=== PATIENT | female | born 1960 | race Hispanic/Latino ===

== ENCOUNTER 2016-11-12 12:49 | Emergency (ER) | payer MEDICARE ==
[2016-11-12 12:50] VITALS: BMI 19.2
[2016-11-12 12:59] VITALS: BP 133/86; PULSE 85; RESP 20; TEMP 99; O2SAT 99
--- NOTE | 2016-11-12 13:26 | ED PDOC ---
HPI: General Adult Time Seen by Provider: 11/12/16 13:06 Chief Complaint (Nursing): Cough, Cold, Congestion Chief Complaint (Provider): Cough History Per: Patient History/Exam Limitations: no limitations Onset/Duration Of Symptoms: Days (1 month) Current Symptoms Are (Timing): Still Present Additional Complaint(s): Pt. with cough, nasal congestion, runny nose, white phlegm. Dyspnea. Tried zpack at home with no relief. Seen by Dr. Lua. Told to come to the ER. No chest pain. No leg pain. No dizziness, weakness, neck pain, headaches. Past Medical History Reviewed: Nursing Documentation, Vital Signs Vital Signs: Last Vital Signs Temp 99 F 11/12/16 12:55 Pulse 85 11/12/16 12:55 Resp 20 11/12/16 12:55 BP 133/86 11/12/16 12:55 Pulse Ox 99 11/12/16 14:24 - Medical History PMH: Anxiety, Asthma, COPD, Hyperthyroidism (Graves, thyroid procedure with radiation), Pneumonia Denies: Diabetes, Hepatitis, HIV, HTN, Seizures, Sexually Transmitted Disease Other PMH: Pneumothorax - Surgical History Surgical History: Denies: CABG - Family History Family History: States: Unknown Family Hx - Living Arrangements Living Arrangements: With Family - Social History Current smoker - smoking cessation education provided: No Alcohol: None Drugs: Denies - Immunization History Hx Tetanus Toxoid Vaccination: No Hx Influenza Vaccination: No Hx Pneumococcal Vaccination: No - Home Medications Home Medications: Ambulatory Orders Medication Instructions Recorded Alprazolam [Xanax] 1 mg PO TID PRN 10/01/14 Fentanyl [Duragesic] 1 patch TD Q2D 10/01/14 Levothyroxine [Synthroid] 0.112 mg PO DAILY 10/01/14 Montelukast [Singulair] 10 mg PO DAILY 10/01/14 Oxycodone HCl/Acetaminophen 1 tab PO TID PRN 12/29/14 [Percocet 325 mg-7.5 mg] clonazePAM [Klonopin] 1 mg PO BID 12/29/14 Albuterol HFA [Ventolin HFA 90 0.09 mg IH TID PRN 7 Days 11/12/16 mcg/actuation (8 g)] Levofloxacin [Levaquin] 750 mg PO DAILY 5 Days 06/22/17 predniSONE [predniSONE Tab] 20 mg PO BID 5 Days 11/12/16 - Allergies Allergies/Adverse Reactions: Allergies Allergy/AdvReac Type Severity Reaction Status Date / Time Penicillins Allergy RASH Verified 11/12/16 12:52 Review of Systems ROS Statement: Except As Marked, All Systems Reviewed And Found Negative ENT: Positive for: Nose Pain, Nose Discharge, Nose Congestion Respiratory: Positive for: Cough, Shortness of Breath, Sputum Physical Exam - Reviewed Nursing Documentation Reviewed: Yes Vital Signs Reviewed: Yes - Physical Exam Appears: Positive for: Non-toxic, No Acute Distress Head Exam: Positive for: ATRAUMATIC, NORMAL INSPECTION, NORMOCEPHALIC Skin: Positive for: Normal Color, Warm, DRY Eye Exam: Positive for: EOMI, Normal appearance, PERRL ENT: Positive for: Nasal Congestion Neck: Positive for: Normal, Painless ROM, Supple Cardiovascular/Chest: Positive for: Regular Rate, Rhythm Respiratory: Positive for: Decreased Breath Sounds. Negative for: Accessory Muscle Use Gastrointestinal/Abdominal: Positive for: Normal Exam, Bowel Sounds, Soft. Negative for: Tenderness Back: Positive for: Normal Inspection. Negative for: L CVA Tenderness, R CVA Tenderness Extremity: Positive for: Normal ROM. Negative for: Tenderness, Pedal Edema Neurologic/Psych: Positive for: Alert, Oriented - Laboratory Results Result Diagrams: 11/12/16 13:55 11/12/16 13:55 Interpretation Of Abn Labs: no acute - ECG ECG: Positive for: Interpreted By Me, Viewed By Me ECG Rhythm: Positive for: Normal QRS, Normal ST Segment Interpretation Of Abn EKG: same as old O2 Sat by Pulse Oximetry: 99 Pulse Ox Interpretation: Normal - Radiology X-Ray: Interpreted by Me, Viewed By Me (same as old) X-Ray Interpretation: No Acute Disease - Progress ED Course And Treament: 1425: Stable. AAOx3. Pain free. Tolerated PO. No dyspnea. Spoke with Dr. Lua. Wants pt. to be dc on levaquin, prednisone, ventolin. Disposition - Clinical Impression Clinical Impression: Cough, Asthma - Patient ED Disposition Is Patient to be Admitted: No Counseled Patient/Family Regarding: Studies Performed, Diagnosis, Need For Followup, Rx Given - Disposition Referrals: [facility] [Outside] - 11/13/16 Disposition: Routine/Home Disposition Time: 14:27 Condition: STABLE Additional Instructions: Return if not better in 3 days. Prescriptions: Albuterol HFA [Ventolin HFA 90 mcg/actuation (8 g)] 0.09 mg IH TID PRN 7 Days PRN Reason: Wheezing Levofloxacin [Levaquin] 750 mg PO DAILY 5 Days predniSONE [predniSONE Tab] 20 mg PO BID 5 Days Instructions: Asthma (ED), Acute Cough (ED)
[2016-11-12] MEDS ORDERED: Albuterol-Ipratrop 3 mg / 0.5 (3 ml) UD IH STA (13:29)
[2016-11-12] MEDS ORDERED: Sodium Chloride 0.9% 500 ML IV STA (13:29)
[2016-11-12 14:04] LABS: BASO % 0.5 % (0.0-2.0); EOS # 0.1 K/uL (0.0-0.7); EOS % 0.9 % (0.0-4.0); HEMATOCRIT 39.4 % (34.0-47.0); LYMPH # 2.1 K/uL (1.0-4.3); LYMPH % 30.4 % (20.0-40.0); MEAN CELL VOLUME 91.6 fl (81.0-99.0); MEAN CORPUSCULAR HEMOGLOBIN 30.1 pg (27.0-31.0); MEAN CORPUSCULAR HGB CONC 32.8 g/dL (33.0-37.0); MEAN PLATELET VOLUME 8.8 fl (7.2-11.7); MONO # 0.5 K/uL (0.0-0.8); MONO % 7.1 % (0.0-10.0); NEUT # 4.1 K/uL (1.8-7.0); NEUT % 61.1 % (50.0-75.0); NRBC % 0.1 % (0.0-0.0); RED CELL DISTRIBUTION WIDTH 13.2 % (11.5-14.5); WHITE BLOOD COUNT 6.8 K/uL (4.8-10.8)
[2016-11-12 14:05] LABS: VENOUS BLOOD GAS BASE EXCESS 4.9 mmol/L (0.0-2.0); VENOUS BLOOD GAS PCO2 62 mmHg (40-60); VENOUS BLOOD PH 7.33 (7.32-7.43)
[2016-11-12 14:11] LABS: ALB/GLOB RATIO 1.8 (1.0-2.1); ALKALINE PHOSPHATASE 55 U/L (38-126); ALT/SGPT 39 U/L (9-52); AST/SGOT 29 U/L (14-36); BILIRUBIN,TOTAL 0.7 mg/dl (0.2-1.3); BLOOD UREA NITROGEN 11 mg/dl (7-17); CALCIUM 9.7 mg/dL (8.4-10.2); CARBON DIOXIDE 27 mmol/L (22-30); CHLORIDE 99 mmol/L (98-107); GFR AFRICAN-AMERICAN > 60; GLUCOSE,RANDOM 94 mg/dL (65-105); SODIUM 139 mmol/l (132-148); TOTAL PROTEIN 7.9 G/DL (6.3-8.2)
--- NOTE | 2016-11-12 14:22 | RAD ---
HISTORY: dyspnea COMPARISON: No prior. FINDINGS: LUNGS: Note that the mid to lower lung blank are partially obscured by overlying bilateral breast implants. No definitive focal consolidation. There is hyperinflation possibly due to COPD appear clinical correlation recommended. Mild biapical pleural thickening is felt be present. PLEURA: No significant pleural effusion identified, no pneumothorax apparent. CARDIOVASCULAR: Normal. OSSEOUS STRUCTURES: No significant abnormalities. VISUALIZED UPPER ABDOMEN: Normal. OTHER FINDINGS: None. IMPRESSION: Hyperinflation; rule out COPD. In situ bilateral breast implants.
--- NOTE | 2016-11-12 23:34 | CARD ---
APPROVED REPORT EKG Measurement Heart [id number] <Conclusion> Normal sinus rhythm Septal infarct, age undetermined Abnormal ECG
== END 2016-11-12 15:01 | disposition home or self-care (01) ==
LOC: H.ER 12:49
DX: R05 Cough (principal); J45.909 Unspecified asthma, uncomplicated
CPT/HCPCS: 71010; 80053; 82803; 83880; 84484; 85025; 93005; 94640; 96374; 99282; J2930; J7040

== ENCOUNTER 2018-04-29 01:37 | Emergency (ER) | payer MEDICARE ==
[2018-04-29 01:37] VITALS: BMI 19.2
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
[2018-04-29 03:11] LABS: BASO % 0.3 % (0.0-2.0); EOS # 0.1 K/uL (0.0-0.7); EOS % 1.2 % (0.0-4.0); HEMOGLOBIN 11.9 g/dL (12.0-16.0); LYMPH % 41.4 % (20.0-40.0); MEAN CORPUSCULAR HEMOGLOBIN 30.9 pg (27.0-31.0); MEAN CORPUSCULAR HGB CONC 33.2 g/dL (33.0-37.0); MEAN PLATELET VOLUME 8.2 fl (7.2-11.7); MONO # 0.7 K/uL (0.0-0.8); MONO % 9.7 % (0.0-10.0); NEUT # 3.5 K/uL (1.8-7.0); NEUT % 47.4 % (50.0-75.0); NRBC % 0.2 % (0.0-0.0); RBC 3.84 Mil/uL (3.80-5.20); RED CELL DISTRIBUTION WIDTH 13.6 % (11.5-14.5); WHITE BLOOD COUNT 7.3 K/uL (4.8-10.8)
[2018-04-29 03:17] LABS: BLOOD UREA NITROGEN 5 mg/dl (7-17); CALCIUM 8.9 mg/dL (8.4-10.2); GFR NON-AFRICAN AMERICAN > 60
[2018-04-29 03:18] LABS: ACETAMINOPHEN < 10.0 ug/ml (10.0-30.0); SALICYLATE < 1.0 mg/dl
[2018-04-29 05:49] LABS: SQUAMOUS EPITHIAL < 1 /hpf (0-5); URINE BACTERIA RARE (<OCC); URINE BILIRUBIN NEGATIVE (NEGATIVE); URINE BLOOD SMALL (NEGATIVE); URINE CLARITY CLEAR (Clear); URINE COLOR STRAW (YELLOW); URINE GLUCOSE (UA) NEG (NEGATIVE); URINE LEUKOCYTE ESTERASE TRACE Leu/uL (Negative); URINE PROTEIN NEGATIVE (NEGATIVE); URINE UROBILINOGEN 0.2-1.0 mg/dL (0.2-1.0)
[2018-04-29 06:19] LABS: BARBITURATES, UR NEGATIVE (NEGATIVE); BENZODIAZEPINES, UR POSITIVE (NEGATIVE); OPIATES, UR NEGATIVE (NEGATIVE); PHENCYCLIDINE, UR NEGATIVE (NEGATIVE)
--- NOTE | 2018-04-29 07:06 | ED PDOC ---
- Laboratory Results Result Diagrams: 04/29/18 02:50 04/29/18 02:50 - ECG O2 Sat by Pulse Oximetry: 100 Medical Decision Making Medical Decision Makin.05a - endorsed by Dr. Alcala. Patient is paranoid but without acute agitation. She is pending [facility] evaluation. Medically cleared. 1500- patient endorsed to Dr. Santa pending [facility] transfer Disposition - Clinical Impression Clinical Impression: Bipolar 1 disorder - Disposition Disposition: Transfer of Care Condition: STABLE Forms: [employer] (Canadian) Patient Signed Over To: Felix Santa Handoff Comments: pending [facility] transfer
[2018-04-29] MEDS ORDERED: Levothyroxine 112 MCG TAB PO STA (07:41)
--- NOTE | 2018-04-29 10:36 | CARD ---
APPROVED REPORT Date of service: 04/29/2018 EKG Measurement Heart [id number] <Conclusion> Normal sinus rhythm Possible septal infarct, age undetermined Abnormal ECG
--- NOTE | 2018-04-29 10:49 | RAD ---
Date of service: 04/29/2018 HISTORY: bizarre behavior COMPARISON: None available. FINDINGS: LUNGS: No active pulmonary disease. Incidental note is made of breast implants increasing density of the inferior chest blank bilaterally. PLEURA: No significant pleural effusion identified, no pneumothorax apparent. CARDIOVASCULAR: No aortic atherosclerotic calcification present. Normal cardiac size. No pulmonary vascular congestion. OSSEOUS STRUCTURES: No significant abnormalities. VISUALIZED UPPER ABDOMEN: Normal. OTHER FINDINGS: None. IMPRESSION: No interval acute cardiopulmonary disease appreciated.
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
--- NOTE | 2018-04-29 15:24 | ED PDOC ---
- Laboratory Results Result Diagrams: 04/29/18 02:50 04/29/18 02:50 - ECG O2 Sat by Pulse Oximetry: 100 - Progress ED Course And Treament: 1500: Stable. Signed out from Dr. Koehler. [place] [facility] Medically cleared by him or previous doctor. 1120: Stable. Dr. Alcala to take over care. [facility] [place] [facility] Disposition - Clinical Impression Clinical Impression: Bipolar 1 disorder - POA Present On Arrival: None - Disposition Disposition: Transfer of Care Disposition Time: 23:20 Condition: STABLE Patient Signed Over To: Ehsan Alcala
--- NOTE | 2018-04-29 23:48 | ED PDOC ---
- Laboratory Results Result Diagrams: 04/29/18 02:50 04/29/18 02:50 - ECG O2 Sat by Pulse Oximetry: 100 (RA) Pulse Ox Interpretation: Normal Medical Decision Making Medical Decision Makin:00 Patient care endorsed from Dr. aSnta to me pending bed availability at [facility] 02:00 Resting comfortably 04:00 Patient asking for xanax to sleep Stable 07:[address] Workman pending bed availability at [facility] Scribe Attestation: Documented by Dennis Veliz acting as a scribe for Ehsan Alcala MD. Provider Scribe Attestation: All medical record entries made by the Scribe were at my direction and personally dictated by me. I have reviewed the chart and agree that the record accurately reflects my personal performance of the history, physical exam, medical decision making, and the department course for this patient. I have also personally directed, reviewed, and agree with the discharge instructions and disposition. Disposition - Clinical Impression Clinical Impression: Bipolar 1 disorder - POA Present On Arrival: None - Disposition Disposition: Transfer of Care Disposition Time: 07:00 Condition: STABLE Forms: [employer] (Latvian) Patient Signed Over To: Shanita Workman Handoff Comments: pending bed availabilty at [facility]
[2018-04-30 03:02] VITALS: RESP 18
--- NOTE | 2018-04-30 07:16 | ED PDOC ---
- Laboratory Results Result Diagrams: 04/29/18 02:50 04/29/18 02:50 - ECG O2 Sat by Pulse Oximetry: 98 (RA) Pulse Ox Interpretation: Normal Medical Decision Making Medical Decision Making: Time: 0700 --Patient signed out to this provider by Dr. Alcala, pending transfer to [facility]. Scribe Attestation: Documented by Marina Haywood, acting as a scribe for Shanita Workman MD Provider Scribe Attestation: All medical record entries made by the Scribe were at my direction and personally dictated by me. I have reviewed the chart and agree that the record accurately reflects my personal performance of the history, physical exam, medical decision making, and the department course for this patient. I have also personally directed, reviewed, and agree with the discharge instructions and disposition. Disposition - Clinical Impression Clinical Impression: Bipolar 1 disorder - Disposition Condition: STABLE Forms: [employer] (Czech)
[2018-04-30] MEDS ORDERED: Levothyroxine 112 MCG TAB PO STA (07:47)
[2018-04-30 12:10] VITALS: O2SAT 97
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
[2018-04-30 16:05] VITALS: BP 140/81; PULSE 88; TEMP 98
== END 2018-04-30 15:50 | disposition short-term general hospital (02) ==
LOC: H.ER 01:37
DX: F31.89 Other bipolar disorder (principal); E05.00 Thyrotoxicosis with diffuse goiter without thyrotoxic crisis or storm; F17.210 Nicotine dependence, cigarettes, uncomplicated; F41.9 Anxiety disorder, unspecified; J44.9 Chronic obstructive pulmonary disease, unspecified; Z88.0 Allergy status to penicillin
CPT/HCPCS: 71045; 80048; 81003; 84443; 85025; 93005; 99285; G0480